=== PATIENT | female | born 1945 | race Caucasian/White ===

== ENCOUNTER → 2021-01-08 11:30 | Outpatient (CLI) | payer OTHER, SELFPAY ==
[2021-01-08 14:16] LABS: COVID19 -Nasal RAPID Negative (Negative)
== END ==
PROVIDERS: Visit Provider Nurse Practitioner Family
DX: Z20.822 Contact with and (suspected) exposure to COVID-19 (principal); Z01.812 Encounter for preprocedural laboratory examination
CPT/HCPCS: 87635; C9803

== ENCOUNTER 2021-01-09 12:05 | Day surgery (SDC) | payer OTHER, SELFPAY ==
--- NOTE | 2021-01-09 | PATH_ITS ---
[facility] Accession Number: [id number] . 01 Material submitted: . colon - RANDOM COLON BIOPSIES . 01 Clinical history: . SDC . 02 Diagnosis: Random Colon Biopsies: Superficial portions of colorectal mucosa with no significant histomorphologic abnormality. MRV 01/11/2021 1045 Local . 02 Electronically signed: . Michelle Baez MD, Pathologist NPI- [id number] . 01 Gross description: . RANDOM COLON BIOPSIES: Received in formalin are 2 fragment(s) of stewart, soft tissue measuring 0.3 x 0.3 x 0.1 cm to 0.3 x 0.1 x 0.1 cm submitted entirely in 1 cassette(s) /QBJ 01/10/2021 0730 Local . 02 Pathologist provided ICD-10: Z12.11 . 02 CPT . 351141 Performed at: 01 [facility] [address] [facility] [place] [facility] [place], [place], [place] [id number] MD Christian Sheehan MD Phone: [phone] Performed at: 02 [facility] [address] [place], [place] [id number] MD Virginia Barnes MD Phone: [phone]
[2021-01-09 13:18] VITALS: BP 120/80; PULSE 91; RESP 16; TEMP 37.1; O2SAT 96; BMI 34.3
[2021-01-09] MEDS: SODIUM CHLORIDE 0.9% 1,000 ML 84 ML IV (13:32)
--- NOTE | 2021-01-09 14:18 | PM.HP.1 ---
History of Present Illness History of Present Illness Date Patient Seen: 01/09/21 Time Patient Seen: 14:19 Chief complaint: SDC Narrative: Patient reports change in bowel habit this year with a tendency towards some diarrhea she has been using a combination of Imodium and Metamucil for resolution of symptoms. She is otherwise here for colon cancer screening. Patient History Medical History Diabetes Hypertension Surgical History History of hysterectomy Family & Social History Social History: household members family Tobacco & Substance use: Smoking Status Never smoker alcohol intake never Substance Use Type marijuana Meds Home Medications and Allergies Home Medications Medication Instructions Recorded Confirmed Type ciclesonide 80 mcg/actuation 80 mcg INHALATION DIRECTED 01/09/21 01/09/21 History aerosol inhaler (Alvesco) lisinopril 10 mg tablet 10 mg PO DAILY 01/09/21 01/09/21 History melatonin 10 mg PO DAILY 01/09/21 01/09/21 History metformin 500 mg tablet 500 mg PO DAILY 01/09/21 01/09/21 History montelukast 10 mg tablet 10 mg PO DIRECTED 01/09/21 01/09/21 History tacrolimus 0.1 % topical ointment 0.1 applic TOPICAL DIRECTED 01/09/21 01/09/21 History Allergies Allergy/AdvReac Type Severity Reaction Status Date / Time No Known Drug Allergies Allergy Verified 01/09/21 13:11 Review of Systems Review of Systems ROS: Yes All systems reviewed with the patient and are negative except as otherwise documented Exam Vital Signs (past 8 hours): - 01/09/21 13:18 Temperature 98.7 F Pulse Rate 91 H Respiratory Rate 16 Blood Pressure 120/80 Pulse Oximetry 96 Oxygen Delivery Method Room Air Const General: cooperative and comfortable Orientation: alert HENMT Head: normocephalic Ears: external ears normal Nose: external nose normal Face and sinus: normal facial exam Mouth: oral mucosae normal Eyes General: appearance normal, both eyes and all related structures Neck Neck: normal visual inspection Chest Chest: normal inspection of the chest Resp Effort & Inspection: normal respiratory effort Auscultation: clear to auscultation bilaterally Cardio Rate: regular rate Rhythm: regular rhythm Heart Sounds: no murmurs GI Inspection: normal to inspection Palpation: soft and No tender Auscultation: normal bowel sounds Skin General: no rashes or lesions noted and No jaundice Neuro General: patient alert and moves all extremities Cognition: normal cognition Speech: speech normal Extrem General: no pedal edema Psych Appearance: grossly normal Assessment & Plan Assessment & Plan narrative: Change in bowel habit. Indicated for colon cancer screening. Colonoscopy is planned for today. Time Spent With Patient Critical Care time: I spent a total of [] minutes of critical care time on this patient's care today; this time is exclusive of procedural time.
--- NOTE | 2021-01-09 14:20 | PM.PREOP ---
Pre-operative Note COVID-19 COVID-19 status: Negative Result date/Date tested (Pos, Neg/Pending): 01/08/21 Interval Note History & Physical reviewed/Exam performed by Physician: Yes Changes to H&P: No ASA Class (for procedural sedation): II
--- NOTE | 2021-01-09 14:44 | PM.OP.COLON ---
Operative Date/Time/Diagnoses Date of procedure: 01/09/21 Time of procedure: 14:45 Pre-op diagnosis: Indicated for colon cancer screening. Change in bowel habit. Post-op diagnosis: same Procedure & Clinicians Study performed: Colonoscopy with biopsies Same procedure as scheduled: Yes Indications: Indicated for colon cancer screening. Change in bowel habit. Surgeon: Prem Almonte Procedure Notes SCOAP/Timeout: Done Procedure in detail: After the risks and benefits were explained, written and verbal informed consent was obtained. The patient was brought into the procedure room and placed into the left lateral decubitus position. Please see nurse architectural modeler notes for sedation details. Digital rectal examination was accomplished. The scope was introduced into the patient and advanced under direct visualization to the cecum as identified by the appendiceal orifice and ileocecal valve. The scope was slowly withdrawn to carefully examine the mucosa for any defects or lesions. Comprehensive imaging was accomplished throughout the rectum including the dentate line. The colon was decompressed, the scope was then removed from the patient who tolerated the procedure well. Bowel prep adequate Pediatric colonoscope Scope withdrawal time: 8 minutes Sedation minutes: 21 Complications: none Impression: Patient had extensive diverticulosis throughout the sigmoid descending transverse and ascending colon. I did not appreciate any colon polyps throughout. No sign of any macroscopic colitis. Random biopsies were taken for exclusion of microscopic colitis. The patient had a very lipomatous appearing ileocecal valve. The backside of the valve appeared to be lipomatous and in essence obscured full visualization of the appendiceal orifice. We confirmed the very soft classic nature of this lipomatous IC valve with the scope irrigation stream. Endoscopic diagnosis 1. Diverticulosis 2. Lipomatous appearing IC valve Post-procedure Plan for aftercare: 1. Await histopathology 2. Repeat colonoscopy 10 years time sooner should symptoms warrant an earlier exam. Disposition: PACU
[2021-01-09 14:47] VITALS: BP 100/63; PULSE 88; RESP 15; TEMP 35.8; O2SAT 95
[2021-01-09 14:52] VITALS: BP 115/68; PULSE 88; RESP 18; O2SAT 95
[2021-01-09 14:59] VITALS: BP 122/74; PULSE 85; RESP 20; O2SAT 96
== END 2021-01-09 15:20 | disposition home or self-care (01) ==
PROVIDERS: Internal Medicine Gastroenterology; Admitting Provider Nurse Anesthetist, Certified Registered; Referring Provider Internal Medicine Gastroenterology; Visit Provider Internal Medicine Gastroenterology
PROC: 0DJD8ZZ Inspection of Lower Intestinal Tract, Via Natural or Artificial Opening Endoscopic (ICD-10-PCS; CPT 45378; principal; 2021-01-09 13:30)
DX: R19.4 Change in bowel habit (principal); K57.30 Diverticulosis of large intestine without perforation or abscess without bleeding; E11.9 Type 2 diabetes mellitus without complications; I10 Essential (primary) hypertension; R19.7 Diarrhea, unspecified; Z79.84 Long term (current) use of oral hypoglycemic drugs
CPT/HCPCS: 45380; 82962; J2704

== ENCOUNTER 2022-09-30 09:10 | Day surgery (SDC) | payer OTHER, MEDICAID, SELFPAY ==
--- NOTE | 2022-09-30 | PATH_ITS ---
[facility] Accession Number: [id number] No. of containers..02 Tissue . 01 Material submitted: . PART A: esophagus - ESOPHAGEAL MASS PART B: body - BIOPSIES @ 26 CM . 01 Diagnosis: A. 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 Please see comment. No evidence of malignancy or high-grade dysplasia. . B. 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 No evidence of malignancy or high-grade dysplasia. MRV 10/04/2022 1359 Local . 01 Comment: Part A: These biopsies are somewhat superficial and may not be technology sales representative of the circumferential, friable mass lesion noted during endoscopy. . Dr. Barnes discussed these results with Dr. Almonte and Dr. Strickland on 10/04/2022. Dr. Proctor also reviewed this case and agrees with the diagnosis. . 01 Electronically signed: . Virginia Barnes MD, Pathologist NPI- [id number] . 01 Gross description: . Part A: ESOPHAGEAL MASS: Received in formalin are 2 fragment(s) of stewart, soft tissue measuring 0.1 x 0.1 x 0.1 cm to 0.3 x 0.3 x 0.3 cm submitted entirely in 1 cassette(s) Part B: BIOPSIES @ 26 CM: Received in formalin are 2 fragment(s) of stewart, soft tissue measuring 0.1 x 0.1 x 0.1 cm to 0.3 x 0.2 x 0.2 cm submitted entirely in 1 cassette(s) /GABE 10/03/2022 0014 Local . 01 Pathologist provided ICD-10: K22.710, K22.9, R13.14 . 01 CPT . 426375, 610152 Specimen Comment: A courtesy copy of this report has been sent to [phone] Performed at: 01 [facility] [address] [place] [address], [place], [place] [id number] MD Christian Sheehan MD Phone: [phone]
[2022-09-30 09:50] VITALS: BMI 29.2
[2022-09-30 10:11] VITALS: PULSE 159; RESP 17; TEMP 36.3; O2SAT 98
[2022-09-30] MEDS: LACTATED RINGERS 1,000 ML 42 ML IV (10:18)
--- NOTE | 2022-09-30 10:46 | P.HP_ITS ---
History of Present Illness History of Present Illness Date Patient Seen: 09/30/22 Time Patient Seen: 10:47 Chief complaint: EGD Narrative: The patient is not here for Dawn's surveillance. Apparently she has profound weight loss and profound dysphagia. She recently had an EGD at would be where dilatation was performed. I do not have any of these notes available for me today. She additionally was then sent to [facility] for consultation and the Barre doctor some how organized a procedure for ?Dawn's? today here with me. [facility] Medical History Diabetes Hypertension Surgical History History of hysterectomy Social History household members: family and none Smoking Status: Never smoker alcohol intake: never Meds Home Medications and Allergies Home Medications Medication Instructions Recorded Confirmed Type ciclesonide 80 mcg/actuation 80 mcg inhalation DIRECTED 01/09/21 09/30/22 History aerosol inhaler (Alvesco) lisinopril 10 mg tablet 10 mg PO DAILY 01/09/21 09/30/22 History melatonin 5 mg PO DAILY 01/09/21 09/30/22 History metformin 500 mg tablet 500 mg PO DAILY 01/09/21 09/30/22 History montelukast 10 mg tablet 10 mg PO DIRECTED 01/09/21 09/30/22 History tacrolimus 0.1 % topical ointment 0.1 applic topical DIRECTED 01/09/21 09/30/22 History Allergies Allergy/AdvReac Type Severity Reaction Status Date / Time No Known Drug Allergies Allergy Verified 09/30/22 09:40 Review of Systems Review of Systems ROS: Yes All systems reviewed with the patient and are negative except as otherwise documented Exam Vital Signs (past 8 hours): - 09/30/22 10:11 Temperature 97.3 F L Pulse Rate 159 H Respiratory Rate 17 Pulse Oximetry 98 Oxygen Delivery Method Room Air Oxygen Delivery Method Room Air Const General: cooperative HENMT Head: normal to inspection Eyes General: appearance normal, both eyes and all related structures Neck Neck: normal visual inspection Chest Chest: normal inspection of the chest Resp Effort & Inspection: normal respiratory effort Cardio Rate: regular rate GI Inspection: normal to inspection Skin General: no rashes or lesions noted Neuro General: patient alert and patient awake Extrem General: normal to inspection and no pedal edema Psych Appearance: grossly normal Assessment & Plan Assessment & Plan narrative: 77-year-old female with dysphagia weight loss and possibly Barretts. Repeat EGD and possible dilatation is pursued today. I have requested all the applicable notes that are lacking for review.
--- NOTE | 2022-09-30 10:48 | PM.PREOP ---
Pre-operative Note Interval Note History & Physical reviewed/Exam performed by Physician: Yes Changes to H&P: No ASA Class (for procedural sedation): III
--- NOTE | 2022-09-30 11:51 | PM.OP.EGD ---
Operative Date/Time/Diagnoses Date of procedure: 09/30/22 Time of procedure: 11:51 Pre-op diagnosis: Dysphagia, weight loss, history of Barretts with stricture and low-grade dysplasia. Post-op diagnosis: same Procedure & Clinicians Study performed: Esophagoscopy with Miranda net foreign body removal and biopsies. Same procedure as scheduled: Yes Indications: Dysphagia, weight loss, history of Barretts with stricture and low-grade dysplasia. Surgeon: Prem Almonte Procedure Notes SCOAP/Timeout: Done Procedure in detail: After the risks and benefits were explained, written and verbal informed consent was obtained. The patient was brought into the procedure room and placed into the left lateral decubitus position. Please see anesthesia notes for sedation details. The scope was introduced into the mouth through the bite block and advanced under direct visualization to the 2nd portion of the duodenum. The scope was slowly withdrawn carefully examining the mucosa for any defects or lesions. Retroflexed views were accomplished in the stomach. The stomach was decompressed, the scope was then removed from the patient who tolerated the procedure well. Sedation minutes: 19 Complications: none Impression: 1. Duodenum: Not seen 2. Stomach: Not seen 3. Esophagus: Top margin of the Dawn's was at approximately 24 cm from the incisors. There was a mass lesion that was circumferential at about 32 cm from the incisors. The lumen has been almost completely obliterated. I could get peaks into more distal esophagus an estimate lumen size to be down around 2 mm. I could not advance the scope through. With such friable mucosa I did not feel that it was safe to attempt blind passage of the wire especially in that I do not know how long this lesion extends. There was some pill debris stuck in the distal esophagus which we removed by way of Miranda net. I biopsied the mass lesion which was quite friable. With separate forceps I obtained biopsies from the more proximal aspect of the obvious Barretts simply for histologic contrast. Endoscopic diagnosis 1. Esophageal mass lesion at 32 cm from the incisors status post biopsies 2. Long segment Barretts Post-procedure Plan for aftercare: 1. Await histology. 2. Proceed with CT scan chest abdomen pelvis with IV contrast. 3. Full liquid diet only. 4. Urgent tertiary care oncology referral. Disposition: PACU
[2022-09-30 11:53] VITALS: BP 101/67; PULSE 62; RESP 22; TEMP 36.8; O2SAT 95
[2022-09-30 11:59] VITALS: BP 102/67; PULSE 60; RESP 20; TEMP 36.8; O2SAT 96
[2022-09-30 12:05] VITALS: BP 103/65; PULSE 57; RESP 22; TEMP 36.7; O2SAT 98
[2022-09-30 12:09] VITALS: BP 106/68; PULSE 69; RESP 20; TEMP 36.7; O2SAT 97
--- NOTE | 2022-09-30 12:18 | SUR.PHASEII ---
pt moved to rm 5 and daughter called to be with her as MD reynaga wanted to speak with them about results
== END 2022-09-30 13:15 | disposition home or self-care (01) ==
PROVIDERS: PCP Internal Medicine; Referring Provider Internal Medicine Gastroenterology; Visit Provider Internal Medicine Gastroenterology
PROC: 0DJ08ZZ Inspection of Upper Intestinal Tract, Via Natural or Artificial Opening Endoscopic (ICD-10-PCS; CPT 43235; principal; 2022-09-30 10:30)
DX: K22.710 Barrett's esophagus with low grade dysplasia (principal); R63.4 Abnormal weight loss; E11.9 Type 2 diabetes mellitus without complications; Z79.84 Long term (current) use of oral hypoglycemic drugs; I10 Essential (primary) hypertension
CPT/HCPCS: 43239; 43247; 82962; J2704